=== PATIENT | male | born 1930 | race Two or more races ===

== ENCOUNTER 2021-02-04 21:26 | Emergency (ER) | payer OTHER ==
[~2021-02-04] VITALS: Ht 175.3 cm; Wt 102.1 kg
[2021-02-04] MEDS ORDERED: RISPERDAL0.5 MG (21:44)
[2021-02-04] MEDS ORDERED: ATIVAN1 M1 (21:44)
[2021-02-04] MEDS ORDERED: ALL DAY ALLERGY10 M3 (21:44)
[2021-02-04] MEDS ORDERED: ZOFRAN8 MG (21:45)
[2021-02-04] MEDS ORDERED: VITAMIN E400 UNI5 (21:45)
[2021-02-04] MEDS ORDERED: ARICEPT10 MG (21:46)
[2021-02-04] MEDS ORDERED: CAMBIA50 MG (21:46)
[2021-02-04] MEDS ORDERED: NAMENDA5 MG (21:47)
[2021-02-04] MEDS ORDERED: PRILOSEC OTC20 MG (21:47)
[2021-02-05] MEDS ORDERED: ZOFRAN4 MG PO (07:49)
[2021-02-05] MEDS ORDERED: PEPCID40 MG PO (07:49)
== END 2021-02-05 08:53 | disposition home or self-care (01) ==
LOC: ER 21:26
DX: R11.11 Vomiting without nausea (principal); Z11.52 Encounter for screening for COVID-19